=== PATIENT | male | born 1960 | race African-American/Black ===

== ENCOUNTER 2017-08-16 12:39 | Emergency (ER) | payer MEDICAID ==
[~2017-08-16] VITALS: Ht 172.7 cm; Wt 62.8 kg
[2017-08-16] MEDS ORDERED: ASPIRIN 81 MG TABLET CHEW ONE (13:00)
[2017-08-16] MEDS ORDERED: ASPIRIN 81 MG TABLET CHEW PO ONE (13:00)
[2017-08-16] MEDS ORDERED: NITROGLYCERIN SINGLE TAB 0.4 MG SL PRN (13:00)
[2017-08-16] MEDS ORDERED: SODIUM CHLORIDE FLUSH 10ML SYR IVF ONE ×2 (13:00→14:00)
[2017-08-16 13:27] LABS: HEMATOCRIT 49.5 % (39.2-51.8); HEMOGLOBIN 16.1 g/dL (13.7-18.0); WHITE BLOOD COUNT 5.4 x10^3/uL (3.4-10)
[2017-08-16 13:30] LABS: ASPARTATE AMINO TRANSFERASE 30 U/L (15-37); BLOOD UREA NITROGEN 8 mg/dL (7-18)
[2017-08-16 13:35] LABS: IS PT STATUS REG ER OR PRE ER? YES
[2017-08-16] MEDS ORDERED: MORPHINE SULFATE 4 MG/ML, 1ML ONE ×2 (13:54→16:14)
[2017-08-16] MEDS ORDERED: FAMOTIDINE 20 MG/2 ML ONE (13:54)
[2017-08-16] MEDS ORDERED: ONDANSETRON 2MG/ML, 2ML ONE (13:54)
[2017-08-16] MEDS ORDERED: ONDANSETRON 2MG/ML, 2ML IVPush ONE (14:00)
[2017-08-16] MEDS ORDERED: SODIUM CHLORIDE 0.9% 1,000ML IVBOLUS ONE (14:00)
[2017-08-16] MEDS ORDERED: FAMOTIDINE 20 MG/2 ML IVP ONE (14:00)
[2017-08-16] MEDS: MORPHINE SULFATE 4 MG/ML, 1ML IVPush PRN ×2 (14:11→16:21)
[2017-08-16 15:56] LABS: PATH.CAST-FLAG NOT PRESENT; SPERM-FLAG NOT PRESENT; SRC-FLAG NOT PRESENT; XTAL-FLAG NOT PRESENT; YLC-FLAG NOT PRESENT
[2017-08-16 19:26] VITALS: BP 119/74
== END 2017-08-16 19:47 | disposition home or self-care (01) ==
LOC: ED 19:20
DX: R07.89 Other chest pain (principal); K59.00 Constipation, unspecified
CPT/HCPCS: 36415; 74022; 74176; 80053; 81001; 83690; 84484; 85025; 85379; 93005; 96361; 96374; 96375; 96376; 99285; J2405; J7030; S0028

== ENCOUNTER 2017-09-30 04:39 | Inpatient (IN) | payer MEDICAID ==
[~2017-09-30] VITALS: Ht 172.7 cm; Wt 60.0 kg
[2017-09-30] MEDS ORDERED: FENTANYL PF 100 MCG/2ML IM ONE (05:30)
[2017-09-30 05:48] LABS: BASOPHILS # (AUTO) 0.01 x10^3/uL (0-0.1); BASOPHILS % (AUTO) 0 % (0-1); EOSINOPHILS % (AUTO) 0 % (1-7); LYMPHOCYTES # (AUTO) 0.66 x10^3/uL (1-3.4); LYMPHOCYTES % (AUTO) 13 % (22-44); MD NO; MEAN CORPUSCULAR HEMOGLOBIN 29.9 pg (27.5-34.5); MEAN CORPUSCULAR HGB CONC 33.1 g/dL (33.2-36.2); MEAN CORPUSCULAR VOLUME 90.1 fL (81-97); MEAN PLATELET VOLUME 7.3 fL (7.4-10.4); MONOCYTES # (AUTO) 0.23 x10^3/uL (0.2-0.8); MONOCYTES % (AUTO) 4 % (2-9); NEUTROPHILS % (AUTO) 83 % (42-75); PLATELET COUNT 230 x10^3/uL (130-400); RED BLOOD COUNT 5.03 x10^6/uL (4.38-5.82); RED CELL DISTRIBUTION WIDTH 13.8 % (9.4-14.8)
[2017-09-30] MEDS ORDERED: FENTANYL PF 100 MCG/2ML ONE ×2 (05:55→14:07)
[2017-09-30 05:58] LABS: ALANINE AMINOTRANSFERASE 28 U/L (12-78); ALBUMIN 3.6 g/dL (3.4-5.0); ANION GAP 8 mmol/L (5-15); CALCIUM 8.8 mg/dL (8.5-10.1); CHLORIDE 104 mmol/L (98-107); CREATININE 0.95 mg/dL (0.7-1.3)
[2017-09-30 06:01] LABS: ALKALINE PHOSPHATASE 41 U/L (45-117); BILIRUBIN,TOTAL 0.5 mg/dL (0.2-1.0); TOTAL PROTEIN 7.5 g/dL (6.4-8.2)
[2017-09-30] MEDS ORDERED: FENTANYL PF 100 MCG/2ML IV ONE (06:30)
[2017-09-30] MEDS ORDERED: OMNIPAQUE 350 MG/ML, 100ML BOTTLE ONE (06:55)
[2017-09-30 08:52] LABS: MICROSCOPIC NOT IND
[2017-09-30 08:54] LABS: CULTURE INDICATED? NO
[2017-09-30 09:42] VITALS: BP 146/89
[2017-09-30] MEDS ORDERED: ONDANSETRON 2MG/ML, 2ML IVPush PRN ×2 (10:00→13:30)
[2017-09-30 10:17] LABS: INTERNATIONAL NORMALIZED RATIO 1.02 (0.93-1.1); PROTHROMBIN TIME 10.5 Seconds (9.6-11.5)
[2017-09-30] MEDS ORDERED: MIDAZOLAM 1 MG/ML, 2ML ONE (10:26)
[2017-09-30] MEDS ORDERED: GLYCOPYRROLATE 0.2MG/1ML, 5ML ONE (10:27)
[2017-09-30] MEDS ORDERED: PROPOFOL 10 MG/ML, 20ML ONE (10:27)
[2017-09-30] MEDS ORDERED: ROCURONIUM 10 MG/ML,10ML ONE (10:27)
[2017-09-30] MEDS ORDERED: NEOSTIGMINE 1 MG/ML, 10ML ONE (10:27)
[2017-09-30] MEDS ORDERED: CEFAZOLIN 1,000 MG ONE (10:27)
[2017-09-30] MEDS ORDERED: FENTANYL PF 250 MCG/5ML ONE (10:27)
[2017-09-30] MEDS ORDERED: LIDOCAINE-MPF 2% ,5ML ONE (10:27)
[2017-09-30] MEDS ORDERED: DEXAMETHASONE 4 MG/ML, 1ML ONE (10:27)
[2017-09-30] MEDS ORDERED: ONDANSETRON 2MG/ML, 2ML ONE (10:27)
[2017-09-30] MEDS ORDERED: SUCCINYLCHOLINE 20 MG/ML, 10ML ONE (10:27)
[2017-09-30] MEDS: LACTATED RINGERS 1,000 ML IV SCH ×2 (11:00→19:00)
[2017-09-30] MEDS ORDERED: KETAMINE 10 MG/ML, 20ML ONE (11:07)
[2017-09-30] MEDS ORDERED: CEFOTETAN 1 GM ONE (11:22)
[2017-09-30] MEDS ORDERED: PHENYLEPHRINE 10 MG/ML ONE (11:22)
[2017-09-30] MEDS ORDERED: KETOROLAC 30 MG/1 ML ONE (13:21)
[2017-09-30] MEDS ORDERED: FENTANYL PF 100 MCG/2ML IV PRN (13:30)
[2017-09-30] MEDS ORDERED: KETOROLAC 30 MG/1 ML IVPush SCH (13:30)
[2017-09-30] MEDS ORDERED: HYDROmorphone 1 MG/ML, 1ML IV PRN (13:30)
[2017-09-30] MEDS ORDERED: HYDROcodone/APAP 7.5-325MG/15ML UDC PO PRN (13:30)
[2017-09-30] MEDS ORDERED: OXYcodone 5 MG/5 ML ORAL.SOL UDC ONE (14:07)
[2017-09-30] MEDS ORDERED: ACETAMINOPHEN 650 MG/20.3 ML UDC ONE (14:07)
[2017-09-30] MEDS: ACETAMINOPHEN 325 MG TABLET PO PRN ×2 (14:12→18:48)
[2017-09-30] MEDS: OXYcodone 5 MG/5 ML ORAL.SOL UDC PO PRN (14:12)
[2017-09-30] MEDS ORDERED: hydrALAzine 20 MG/ML, 1ML IV PRN (15:30)
[2017-09-30] MEDS ORDERED: ACETAMINOPHEN 650 MG SUPP PR PRN (15:30)
[2017-09-30] MEDS: morphine SULFATE 10 MG/ML, 1ML IVPush PRN ×4 (16:10→22:51)
[2017-09-30] MEDS: POTASSIUM CHLORIDE 20 MEQ in D5%-LACTATED RINGERS 1,000 ML IV SCH ×2 (16:41→22:53)
[2017-09-30 16:45] VITALS: BP 126/83
[2017-09-30 19:43] VITALS: BP 117/79
[2017-09-30] MEDS: KETOROLAC 30 MG/1 ML IV PRN (19:53)
[2017-10-01 00:30] VITALS: BP 109/65
[2017-10-01] MEDS ORDERED: MORPHINE SULFATE 4 MG/ML, 1ML ONE (01:48)
[2017-10-01] MEDS: KETOROLAC 30 MG/1 ML IV PRN ×2 (01:50→16:58)
[2017-10-01] MEDS: morphine SULFATE 10 MG/ML, 1ML IVPush PRN ×4 (01:51→22:52)
[2017-10-01 04:24] VITALS: BP 116/75
[2017-10-01 05:24] LABS: CHLORIDE 105 mmol/L (98-107)
[2017-10-01] MEDS: ENOXAPARIN 30 MG/0.3 ML SQ SCH ×2 (05:31→17:00)
[2017-10-01 05:32] LABS: ALANINE AMINOTRANSFERASE 25 U/L (12-78); ALBUMIN 2.7 g/dL (3.4-5.0); ALKALINE PHOSPHATASE 27 U/L (45-117); ANION GAP 5 mmol/L (5-15); BILIRUBIN,TOTAL 0.8 mg/dL (0.2-1.0); CALCIUM 7.8 mg/dL (8.5-10.1); CREATININE 1.08 mg/dL (0.7-1.3); TOTAL PROTEIN 5.9 g/dL (6.4-8.2)
[2017-10-01] MEDS: POTASSIUM CHLORIDE 20 MEQ in D5%-LACTATED RINGERS 1,000 ML IV SCH ×3 (05:32→19:59)
[2017-10-01 05:33] LABS: BASOPHILS # (AUTO) 0.03 x10^3/uL (0-0.1); BASOPHILS % (AUTO) 0 % (0-1); EOSINOPHILS # (AUTO) 0.01 x10^3/uL (0-0.4); EOSINOPHILS % (AUTO) 0 % (1-7); LYMPHOCYTES # (AUTO) 1.62 x10^3/uL (1-3.4); LYMPHOCYTES % (AUTO) 21 % (22-44); MD NO; MEAN CORPUSCULAR HGB CONC 33.2 g/dL (33.2-36.2); MEAN CORPUSCULAR VOLUME 90.4 fL (81-97); MEAN PLATELET VOLUME 7.6 fL (7.4-10.4); MONOCYTES # (AUTO) 0.56 x10^3/uL (0.2-0.8); MONOCYTES % (AUTO) 7 % (2-9); NEUTROPHILS # (AUTO) 5.61 x10^3/uL (1.8-6.8); NEUTROPHILS % (AUTO) 72 % (42-75); PLATELET COUNT 207 x10^3/uL (130-400); RED BLOOD COUNT 4.39 x10^6/uL (4.38-5.82); RED CELL DISTRIBUTION WIDTH 13.5 % (9.4-14.8)
[2017-10-01 07:47] VITALS: BP 112/69
[2017-10-01 13:14] VITALS: BP 117/74
[2017-10-01] MEDS ORDERED: ENOXAPARIN 40 MG/0.4 ML SQ SCH (15:30)
[2017-10-01 19:28] VITALS: BP 119/73
[2017-10-02] MEDS: OXYcodone 5 MG/5 ML ORAL.SOL UDC PO PRN (03:16)
[2017-10-02] MEDS: POTASSIUM CHLORIDE 20 MEQ in D5%-LACTATED RINGERS 1,000 ML IV SCH ×3 (03:16→18:06)
[2017-10-02 03:21] VITALS: BP 139/87
[2017-10-02 05:12] LABS: BASOPHILS # (AUTO) 0.01 x10^3/uL (0-0.1); BASOPHILS % (AUTO) 0 % (0-1); EOSINOPHILS # (AUTO) 0.09 x10^3/uL (0-0.4); EOSINOPHILS % (AUTO) 1 % (1-7); LYMPHOCYTES % (AUTO) 18 % (22-44); MD NO; MEAN CORPUSCULAR HEMOGLOBIN 29.6 pg (27.5-34.5); MEAN CORPUSCULAR HGB CONC 32.7 g/dL (33.2-36.2); MEAN CORPUSCULAR VOLUME 90.3 fL (81-97); MEAN PLATELET VOLUME 7.7 fL (7.4-10.4); MONOCYTES # (AUTO) 0.62 x10^3/uL (0.2-0.8); MONOCYTES % (AUTO) 9 % (2-9); NEUTROPHILS % (AUTO) 72 % (42-75); PLATELET COUNT 197 x10^3/uL (130-400); RED BLOOD COUNT 3.92 x10^6/uL (4.38-5.82); RED CELL DISTRIBUTION WIDTH 13.6 % (9.4-14.8)
[2017-10-02] MEDS: ENOXAPARIN 30 MG/0.3 ML SQ SCH ×2 (06:16→18:06)
[2017-10-02] MEDS: morphine SULFATE 10 MG/ML, 1ML IVPush PRN ×2 (06:23→18:06)
[2017-10-02 07:31] VITALS: BP 121/74
[2017-10-02] MEDS: morphine SULFATE 10 MG/ML, 1ML IV PRN ×2 (09:49→11:56)
[2017-10-02 11:46] VITALS: BP 146/92
[2017-10-02 11:54] VITALS: BP 132/89
[2017-10-02 12:26] LABS: TROPONIN I < 0.015 ng/mL (0.000-0.045)
[2017-10-02 13:08] VITALS: BP 144/97
[2017-10-02 19:22] VITALS: BP 124/80
[2017-10-02] MEDS: KETOROLAC 30 MG/1 ML IV PRN (20:43)
[2017-10-03] MEDS: HEPARIN 5,000 UNITS/ML, 1ML SQ SCH ×3 (00:15→16:19)
[2017-10-03 01:08] VITALS: BP 121/68
[2017-10-03] MEDS: POTASSIUM CHLORIDE 20 MEQ in D5%-LACTATED RINGERS 1,000 ML IV SCH ×4 (01:08→22:00)
[2017-10-03] MEDS: OXYcodone 5 MG/5 ML ORAL.SOL UDC PO PRN (04:30)
[2017-10-03] MEDS: KETOROLAC 30 MG/1 ML IV PRN ×2 (04:30→13:31)
[2017-10-03 05:24] LABS: BASOPHILS # (AUTO) 0.02 x10^3/uL (0-0.1); BASOPHILS % (AUTO) 0 % (0-1); EOSINOPHILS # (AUTO) 0.14 x10^3/uL (0-0.4); EOSINOPHILS % (AUTO) 2 % (1-7); LYMPHOCYTES # (AUTO) 1.49 x10^3/uL (1-3.4); LYMPHOCYTES % (AUTO) 24 % (22-44); MD NO; MEAN CORPUSCULAR HEMOGLOBIN 29.8 pg (27.5-34.5); MEAN CORPUSCULAR HGB CONC 33.5 g/dL (33.2-36.2); MEAN CORPUSCULAR VOLUME 88.9 fL (81-97); MONOCYTES # (AUTO) 0.55 x10^3/uL (0.2-0.8); MONOCYTES % (AUTO) 9 % (2-9); NEUTROPHILS # (AUTO) 4.05 x10^3/uL (1.8-6.8); NEUTROPHILS % (AUTO) 65 % (42-75); PLATELET COUNT 199 x10^3/uL (130-400); RED CELL DISTRIBUTION WIDTH 13.5 % (9.4-14.8)
[2017-10-03 06:58] VITALS: BP 135/84
[2017-10-03] MEDS: morphine SULFATE 10 MG/ML, 1ML IV PRN ×2 (08:10→19:33)
[2017-10-03 12:26] VITALS: BP 150/90
[2017-10-03] MEDS: ACETAMINOPHEN 325 MG TABLET PO PRN ×2 (16:19→20:21)
[2017-10-03 20:18] VITALS: BP 126/85
[2017-10-04] MEDS: HEPARIN 5,000 UNITS/ML, 1ML SQ SCH ×3 (02:09→15:47)
[2017-10-04] MEDS: ACETAMINOPHEN 325 MG TABLET PO PRN ×4 (02:14→20:07)
[2017-10-04 02:42] VITALS: BP 160/89
[2017-10-04] MEDS: POTASSIUM CHLORIDE 20 MEQ in D5%-LACTATED RINGERS 1,000 ML IV SCH ×4 (04:00→23:46)
[2017-10-04 05:27] LABS: BASOPHILS # (AUTO) 0.02 x10^3/uL (0-0.1); BASOPHILS % (AUTO) 0 % (0-1); EOSINOPHILS # (AUTO) 0.22 x10^3/uL (0-0.4); EOSINOPHILS % (AUTO) 4 % (1-7); LYMPHOCYTES # (AUTO) 1.43 x10^3/uL (1-3.4); LYMPHOCYTES % (AUTO) 24 % (22-44); MD NO; MEAN CORPUSCULAR HEMOGLOBIN 29.9 pg (27.5-34.5); MEAN CORPUSCULAR HGB CONC 33.2 g/dL (33.2-36.2); MEAN CORPUSCULAR VOLUME 89.9 fL (81-97); MEAN PLATELET VOLUME 7.4 fL (7.4-10.4); MONOCYTES # (AUTO) 0.54 x10^3/uL (0.2-0.8); MONOCYTES % (AUTO) 9 % (2-9); NEUTROPHILS # (AUTO) 3.65 x10^3/uL (1.8-6.8); NEUTROPHILS % (AUTO) 62 % (42-75); PLATELET COUNT 244 x10^3/uL (130-400); RED CELL DISTRIBUTION WIDTH 12.9 % (9.4-14.8)
[2017-10-04 05:44] LABS: ANION GAP 7 mmol/L (5-15); CHLORIDE 104 mmol/L (98-107)
[2017-10-04 05:51] LABS: CALCIUM 8.2 mg/dL (8.5-10.1); CREATININE 0.82 mg/dL (0.7-1.3)
[2017-10-04 08:24] VITALS: BP 147/81
[2017-10-04 14:13] VITALS: BP 128/72
[2017-10-04] MEDS ORDERED: OMNIPAQUE 350 MG/ML, 100ML BOTTLE ONE (15:43)
[2017-10-04 19:43] VITALS: BP 137/89
[2017-10-05] MEDS: ACETAMINOPHEN 325 MG TABLET PO PRN ×5 (00:10→22:33)
[2017-10-05] MEDS: HEPARIN 5,000 UNITS/ML, 1ML SQ SCH ×3 (00:10→17:43)
[2017-10-05] MEDS: morphine SULFATE 10 MG/ML, 1ML IVPush PRN (02:36)
[2017-10-05 02:43] VITALS: BP 122/72
[2017-10-05 04:45] LABS: BASOPHILS # (AUTO) 0.07 x10^3/uL (0-0.1); BASOPHILS % (AUTO) 1 % (0-1); EOSINOPHILS # (AUTO) 0.16 x10^3/uL (0-0.4); EOSINOPHILS % (AUTO) 3 % (1-7); LYMPHOCYTES % (AUTO) 25 % (22-44); MD NO; MEAN CORPUSCULAR HEMOGLOBIN 29.9 pg (27.5-34.5); MEAN CORPUSCULAR HGB CONC 33.5 g/dL (33.2-36.2); MEAN CORPUSCULAR VOLUME 89.4 fL (81-97); MEAN PLATELET VOLUME 8.2 fL (7.4-10.4); MONOCYTES # (AUTO) 0.66 x10^3/uL (0.2-0.8); MONOCYTES % (AUTO) 11 % (2-9); NEUTROPHILS # (AUTO) 3.55 x10^3/uL (1.8-6.8); NEUTROPHILS % (AUTO) 60 % (42-75); PLATELET COUNT 261 x10^3/uL (130-400); RED CELL DISTRIBUTION WIDTH 13.2 % (9.4-14.8)
[2017-10-05] MEDS: POTASSIUM CHLORIDE 20 MEQ in D5%-LACTATED RINGERS 1,000 ML IV SCH ×3 (06:31→21:23)
[2017-10-05 07:22] VITALS: BP 144/80
[2017-10-05 13:27] VITALS: BP 131/72
[2017-10-05 20:29] VITALS: BP 130/78
[2017-10-06] MEDS: ACETAMINOPHEN 325 MG TABLET PO PRN ×4 (03:51→20:47)
[2017-10-06] MEDS: HEPARIN 5,000 UNITS/ML, 1ML SQ SCH ×4 (03:52→23:19)
[2017-10-06 04:27] VITALS: BP 133/84
[2017-10-06 05:49] LABS: BASOPHILS # (AUTO) 0.03 x10^3/uL (0-0.1); BASOPHILS % (AUTO) 1 % (0-1); EOSINOPHILS # (AUTO) 0.15 x10^3/uL (0-0.4); EOSINOPHILS % (AUTO) 3 % (1-7); LYMPHOCYTES # (AUTO) 1.83 x10^3/uL (1-3.4); LYMPHOCYTES % (AUTO) 34 % (22-44); MD NO; MEAN CORPUSCULAR HEMOGLOBIN 29.9 pg (27.5-34.5); MEAN CORPUSCULAR HGB CONC 33.4 g/dL (33.2-36.2); MEAN CORPUSCULAR VOLUME 89.5 fL (81-97); MEAN PLATELET VOLUME 8.1 fL (7.4-10.4); MONOCYTES % (AUTO) 11 % (2-9); NEUTROPHILS # (AUTO) 2.73 x10^3/uL (1.8-6.8); NEUTROPHILS % (AUTO) 51 % (42-75); PLATELET COUNT 284 x10^3/uL (130-400); RED BLOOD COUNT 4.31 x10^6/uL (4.38-5.82); RED CELL DISTRIBUTION WIDTH 13.1 % (9.4-14.8)
[2017-10-06] MEDS: POTASSIUM CHLORIDE 20 MEQ in D5%-LACTATED RINGERS 1,000 ML IV SCH ×3 (09:18→23:19)
[2017-10-06 09:21] VITALS: BP 124/79
[2017-10-06 13:28] VITALS: BP 155/80
[2017-10-06 20:52] VITALS: BP 145/76
[2017-10-07 00:46] VITALS: BP 127/75
[2017-10-07] MEDS: ACETAMINOPHEN 325 MG TABLET PO PRN ×6 (00:46→22:08)
[2017-10-07] MEDS: POTASSIUM CHLORIDE 20 MEQ in D5%-LACTATED RINGERS 1,000 ML IV SCH (05:21)
[2017-10-07 06:02] LABS: BASOPHILS # (AUTO) 0.04 x10^3/uL (0-0.1); BASOPHILS % (AUTO) 1 % (0-1); EOSINOPHILS % (AUTO) 3 % (1-7); LYMPHOCYTES # (AUTO) 2.32 x10^3/uL (1-3.4); LYMPHOCYTES % (AUTO) 36 % (22-44); MD NO; MEAN CORPUSCULAR HEMOGLOBIN 29.4 pg (27.5-34.5); MEAN CORPUSCULAR HGB CONC 32.7 g/dL (33.2-36.2); MEAN CORPUSCULAR VOLUME 89.8 fL (81-97); MEAN PLATELET VOLUME 7.6 fL (7.4-10.4); MONOCYTES # (AUTO) 0.67 x10^3/uL (0.2-0.8); MONOCYTES % (AUTO) 10 % (2-9); NEUTROPHILS # (AUTO) 3.22 x10^3/uL (1.8-6.8); NEUTROPHILS % (AUTO) 50 % (42-75); PLATELET COUNT 308 x10^3/uL (130-400); RED BLOOD COUNT 4.29 x10^6/uL (4.38-5.82)
[2017-10-07 06:52] VITALS: BP 129/81
[2017-10-07] MEDS: HEPARIN 5,000 UNITS/ML, 1ML SQ SCH ×3 (08:48→23:49)
[2017-10-07] MEDS ORDERED: BISACODYL 10 MG SUPP PR PRN (09:00)
[2017-10-07 13:37] VITALS: BP 136/77
[2017-10-07 20:06] VITALS: BP 128/71
[2017-10-08 02:00] VITALS: BP 124/72
[2017-10-08] MEDS: ACETAMINOPHEN 325 MG TABLET PO PRN ×3 (05:41→15:41)
[2017-10-08 05:56] LABS: BASOPHILS # (AUTO) 0.11 x10^3/uL (0-0.1); BASOPHILS % (AUTO) 2 % (0-1); EOSINOPHILS # (AUTO) 0.22 x10^3/uL (0-0.4); EOSINOPHILS % (AUTO) 3 % (1-7); LYMPHOCYTES # (AUTO) 2.32 x10^3/uL (1-3.4); LYMPHOCYTES % (AUTO) 35 % (22-44); MD NO; MEAN CORPUSCULAR HGB CONC 33.6 g/dL (33.2-36.2); MEAN CORPUSCULAR VOLUME 89.3 fL (81-97); MEAN PLATELET VOLUME 7.6 fL (7.4-10.4); MONOCYTES # (AUTO) 0.64 x10^3/uL (0.2-0.8); MONOCYTES % (AUTO) 10 % (2-9); NEUTROPHILS # (AUTO) 3.43 x10^3/uL (1.8-6.8); NEUTROPHILS % (AUTO) 51 % (42-75); PLATELET COUNT 333 x10^3/uL (130-400); RED CELL DISTRIBUTION WIDTH 13.1 % (9.4-14.8)
[2017-10-08 07:26] VITALS: BP 124/79
[2017-10-08] MEDS: HEPARIN 5,000 UNITS/ML, 1ML SQ SCH ×2 (08:00→15:46)
[2017-10-08 13:33] VITALS: BP 119/77
[2017-10-08] MEDS ORDERED: PNEUMOCOCCAL VACC.PER PHARMACY IM ONE (14:00)
[2017-10-08] MEDS ORDERED: FLU VACC QS2017-18 (36MOS+) UP/PF 0.5 ML IM-VACC ONE (14:30)
[2017-10-08] MEDS ORDERED: PNEUMOCOCCAL 23 VACCINE IM-VACC ONE (14:30)
[2017-10-08] MEDS ORDERED: ACET325T14 PO (15:02)
== END 2017-10-08 18:00 | disposition home or self-care (01) | DRG 331 ==
LOC: ED 05:32 → EDIP 08:26 → 4WST 09:35 → 4NOR 11:28
PROVIDERS: ADMIT Internal Medicine Pulmonary Disease; ATTEND Internal Medicine Pulmonary Disease
PROC: 0DTF0ZZ Resection of Right Large Intestine, Open Approach (ICD-10-PCS; principal; 2017-09-30 12:15)
DX: K56.609 Unspecified intestinal obstruction, unspecified as to partial versus complete obstruction (principal); F17.200 Nicotine dependence, unspecified, uncomplicated; I10 Essential (primary) hypertension; K56.7 Ileus, unspecified; K59.00 Constipation, unspecified; L20.9 Atopic dermatitis, unspecified; Z71.6 Tobacco abuse counseling; Z87.442 Personal history of urinary calculi
CPT/HCPCS: 36415; 74018; 74021; 74177; 80048; 80053; 81003; 83605; 83690; 83735; 84100; 84484; 85025; 85610; 88307; 90686; 90732; 93005; J0690; J1100; J1644; J1650; J1885; J2250; J2405; J2704; J2710; J3010; J3480; J3490; Q9967; J0330; J2270; J2370; J7121; S0074